=== PATIENT | male | born 1965 | race Caucasian/White ===

== ENCOUNTER 2018-02-10 11:08 | Emergency (ER) | payer BC ==
[2018-02-10] MEDS ORDERED: ONDANSETRON HCL IV 4 MG/2 ML VIAL IV ONE (11:24)
[2018-02-10] MEDS ORDERED: SODIUM CHLORIDE 0.9% 500 ML IV ONE (11:24)
[2018-02-10] MEDS ORDERED: HYDROMORPHONE HCL 2 MG/ML VIAL IVP ONE (11:25)
--- NOTE | 2018-02-10 11:27 | Emergency Department Record ---
History of Present Illness - General Chief complaint: Male Urogenital Problem Stated complaint: POSSIBLE KIDNEY STONES Time Seen by Provider: 02/10/18 11:21 Source: Patient Mode of Arrival: Ambulatory Limitations: No limitations - History of Present Illness Initial comments: The patient is here due to L flank pain for 10 hours. The pain is sharp and stabbing and is associated with nausea and vomiting. He has had a hx of kidney stones similar to this and feels he has another. He has been able to pass the stones in the past. He denies any fever with this problem. MD Complaint: Other Onset/Timin -: Hour(s) Location: Left flank Radiation: L flank Severity: Severe Severity scale (1-10): 10 Quality: Sharp Consistency: Constant Improves with: None Worsens with: None Reports: Nausea/vomiting - Related Data Home Medications Medication Instructions Recorded Confirmed Last Taken Aspirin [Aspir-Low] 81 mg PO DAILY 02/10/18 02/10/18 Unknown Cholecalciferol (Vitamin D3) 2,000 unit PO DAILY 02/10/18 02/10/18 Unknown [Vitamin D3] Simvastatin [Simvastatin] 20 mg PO DAILY 02/10/18 02/10/18 Unknown Tamsulosin HCl [Flomax] 0.4 mg PO DAILY 02/10/18 02/10/18 Unknown Previous Rx's Medication Instructions Recorded Ciprofloxacin HCl [Cipro] 500 mg PO Q12HR #14 tablet 02/10/18 Hydrocodone/Acetaminophen [[place] 1 - 2 each PO .EVERY 4-6 HRS PRN 02/10/18 5-325 Tablet] #20 tablet Allergies Allergy/AdvReac Type Severity Reaction Status Date / Time No Known Drug Allergies Allergy Verified 02/10/18 11:17 Travel Screening - Travel/Exposure Within Last 30 Days Have you traveled within the last 30 days?: No Review of Systems Constitutional: Denies: Chills, Fever Eyes: Denies: Eye discharge ENT: Denies: Congestion Respiratory: Denies: Cough, Dyspnea Past Medical History - SOCIAL HISTORY Smoking Status: Never smoker Alcohol Use: None Drug Use: None - RESPIRATORY Hx Respiratory Disorders: No - CARDIOVASCULAR Hx Cardio Disorders: Yes Comment:: high cholesterol - NEURO Hx Neuro Disorders: No - GI Hx GI Disorders: No - Hx Genitourinary Disorders: Yes Hx Kidney Stones: Yes - ENDOCRINE Hx Endocrine Disorders: No - MUSCULOSKELETAL Hx Musculoskeletal Disorders: No - PSYCH Hx Psych Problems: No - HEMATOLOGY/ONCOLOGY Hx Hematology/Oncology Disorders: No Family Medical History Any Significant Family History?: No Physical Exam - General General Appearance: Alert, Oriented x3, Cooperative, No acute distress - Head Head exam: Atraumatic, Normocephalic, Normal inspection - Eye Eye exam: Normal appearance, PERRL - Neck Neck exam: Normal inspection, Full ROM. negative: Tenderness - Respiratory Respiratory exam: Normal lung sounds bilaterally. negative: Respiratory distress - Cardiovascular Cardiovascular Exam: Regular rate, Normal rhythm, Normal heart sounds - GI/Abdominal GI/Abdominal exam: Soft, Tenderness (LUQ). negative: Distended, Rigid - Extremities Extremities exam: Normal inspection, Full ROM, Normal capillary refill. negative: Tenderness Course Vital Signs 02/10/18 11:13 Temperature 98.5 F Pulse Rate 48 L Respiratory 20 Rate Blood Pressure 125/81 Pulse Ox 97 - Reevaluation(s) Reevaluation #1: The patient is doing better at this time. He states the pain is much improved and he is resting much more comfortably. 02/10/18 12:38 Reevaluation #2: The patient is doing well at this time. I did discuss the case with Dr. Grullon and he does agree with the plan for discharge and he can see the patient in the office tomorrow. The patient will call for an appointment and understands the need to return for any fever, vomiting, or worse pain. 02/10/18 13:30 Medical Decision Making - Data Complexity MDM Data: Labs Ordered and/or Reviewed, X-Ray Ordered and/or Reviewed - Lab Data Result diagrams: 02/10/18 11:20 02/10/18 11:20 - Radiology Data Radiology results: Report reviewed (CT: 2.4 mm stone L UVJ with mild hydro.) Disposition Disposition: Discharge Clinical Impression: Ureteral stone Disposition: Home, Self-Care Condition: (2) Stable Instructions: Ureteral Stones (ED) Additional Instructions: Please drink plenty of fluids and take Motrin or [place] for pain. Also continue your Flomax and take the Cipro. Please call Dr. Grullon today for an appointment tomorrow in [place]. Please return to the ER for any worse pain, fever, or vomiting. Prescriptions: Ciprofloxacin HCl [Cipro] 500 mg PO Q12HR #14 tablet Hydrocodone/Acetaminophen [[place] 5-325 Tablet] 1 - 2 each PO .EVERY 4-6 HRS PRN #20 tablet PRN Reason: Pain Referrals: FRED GRULLON M.D. [MEDICAL DOCTOR] - Forms: Patient Portal Access Time of Disposition: 13:33 Quality - Quality Measures Quality Measures: N/A - Blood Pressure Screening View Details: Yes Does Patient Have Any of the Following: No Blood Pressure Classification: Pre-Hypertensive BP Reading Systolic Measurement: 125 Diastolic Measurement: 81 Screening for High Blood Pressure: < Pre-Hypertensive BP, F/U Documented > [ G8950] Pre-Hypertensive Follow-up Interventions: Referral to alternative/primary care provider.
[2018-02-10 11:36] LABS: HEMATOCRIT 46.1 % (42.0-52.0); HEMOGLOBIN 16.4 gm/dl (14.0-18.0); LYMPH % 5.9 % (16-45); MEAN CORPUSCULAR HGB CONC 35.6 g/dl (32-36); MEAN PLATELET VOLUME 10.4 fl (7.4-10.4); MONO % 5.6 % (0-9); PLATELET COUNT 229 K/uL (130-400); RED BLOOD COUNT 5.12 M/uL (4.40-5.70); RED CELL DISTRIBUTION WIDTH 12.4 % (11.5-14.5); WHITE BLOOD COUNT W/O DIFF 10.7 K/uL (4.2-12.2)
[2018-02-10 11:52] LABS: BLOOD UREA NITROGEN 18 mg/dL (6-20); CREATININE 1.2 mg/dL (0.7-1.2); EST GLOMERULAR FILTRATION RATE > 60 mL/min; GLUCOSE,RANDOM 129 mg/dL (74-109)
[2018-02-10] MEDS ORDERED: KETOROLAC 30 MG/ML VIAL IVP ONE (11:58)
[2018-02-10 12:43] LABS: URINE APPEARANCE CLEAR; URINE BILIRUBIN NEGATIVE (NEGATIVE); URINE BLOOD TRACE-L (NEGATIVE); URINE COLOR YELLOW; URINE GLUCOSE (UA) NEGATIVE (NEGATIVE); URINE KETONE TRACE (NEGATIVE); URINE LEUKOCYTE ESTERASE NEGATIVE (NEGATIVE); URINE NITRITE NEGATIVE (NEGATIVE); URINE PROTEIN NEGATIVE (NEGATIVE); URINE UROBILINOGEN 0.2 E.U./dL (0.20 - 1.00)
--- NOTE | 2018-02-11 08:11 | CT SCAN REPORT ---
EXAM: EMERGENCY CT OF THE ABDOMEN AND PELVIS WITHOUT CONTRAST HISTORY: LEFT FLANK PAIN. TECHNIQUE: Axial CT scan of the abdomen and pelvis was performed without oral or IV contrast. Comparison: None. FINDINGS: There are bilateral currently nonobstructing intrarenal calculi present, however, there is also hydronephrosis and hydroureter on the left with the dilated left ureter followed down to the left UVJ in the pelvis where it leads to a small calcification about 2.4 mm in size consistent with a tiny distal left ureteral calculus causing a component of obstruction on the left. No actual bladder calculus is seen. No hydronephrosis or hydroureter is seen on the right with no right ureteral calculus evident. The prostate is mildly enlarged measuring about 4.8 cm in transverse x 4.5 cm in AP diameters. No calcified gallstones are seen within the gallbladder. There is a 2 cm low attenuation mass medial segment left lobe of the liver posteriorly with a CT density of 8. This is incompletely evaluated without IV contrast, but is presumably a hepatic cyst. If not previously documented, follow-up MRI of the liver could be performed in an effort to confirm. Evaluation of the bowel and viscera very limited without oral or IV contrast. Given this limitation, no definite splenic, adrenal, pancreatic, or renal mass identified. Small hiatal hernia. The appendix is visualized and appears negative with no appendicitis evident. No free intraperitoneal air or free intraperitoneal fluid evident. There is a small periumbilical anterior abdominal wall hernia containing adipose tissue, but no bowel. Degenerative disk disease in the lower lumbar spine. IMPRESSION: 1. DISTAL LEFT URETERAL CALCULUS IN THE LEFT UVJ MEASURING ABOUT 2.4 MM IN SIZE WITH SOME ASSOCIATED HYDRONEPHROSIS AND HYDROURETER ON THE LEFT. 2. BILATERAL CURRENTLY NONOBSTRUCTING INTRARENAL CALCULI WELL. 3. PROBABLE 2 CM CYST LEFT LOBE OF THE LIVER, INCOMPLETELY EVALUATED WITHOUT IV CONTRAST. 4. SMALL PERIUMBILICAL ANTERIOR ABDOMINAL WALL HERNIA CONTAINING ADIPOSE TISSUE , BUT NO BOWEL. 5. SOMEWHAT ENLARGED PROSTATE. CORRELATION WITH PHYSICAL EXAM AND SERUM PSA SUGGESTED. JOB NUMBER: [id number] MTDD
== END 2018-02-10 13:38 | disposition home or self-care (01) ==
LOC: ER 11:08
DX: N13.2 Hydronephrosis with renal and ureteral calculous obstruction (principal); R11.2 Nausea with vomiting, unspecified; Z87.442 Personal history of urinary calculi
CPT/HCPCS: 99284 ×2; 96374; 96375; 96361; 80048; 81001; 85027; 74176; J1885; J2405; J1170

== ENCOUNTER 2018-05-17 09:24 | Emergency (ER) | payer BC ==
--- NOTE | 2018-05-17 09:45 | Emergency Department Record ---
History of Present Illness - General Chief complaint: Flank Pain Stated complaint: PASSING KIDNEY STONE Time Seen by Provider: 05/17/18 09:44 Source: Patient Mode of Arrival: Ambulatory Limitations: No limitations - History of Present Illness Initial comments: The patient is here due to R flank pain for 2 hours. The onset was sudden. The patient has a long hx of kidney stones and feels this is another one. He has had nausea and vomiting with it and has always been able to pass his stones in the past on his own. MD Complaint: Other Onset/Timin -: Hour(s) Location: Right flank Severity scale (1-10): 10 - Related Data Allergies Allergy/AdvReac Type Severity Reaction Status Date / Time No Known Drug Allergies Allergy Verified 02/10/18 11:17 Travel Screening - Travel/Exposure Within Last 30 Days Have you traveled within the last 30 days?: No - Travel/Exposure Within Last Year Have you traveled outside the [place] in the last year?: No - Additonal Travel Details Have you been exposed to anyone with a communicable illness?: No - Travel Symptoms Symptom Screening: None Review of Systems Constitutional: Denies: Chills, Fever Eyes: Denies: Eye discharge ENT: Denies: Congestion Respiratory: Denies: Cough, Dyspnea Past Medical History - SOCIAL HISTORY Smoking Status: Never smoker Alcohol Use: None Drug Use: None - RESPIRATORY Hx Respiratory Disorders: No - CARDIOVASCULAR Hx Cardio Disorders: Yes Comment:: high cholesterol - NEURO Hx Neuro Disorders: No - GI Hx GI Disorders: No - Hx Genitourinary Disorders: Yes Hx Kidney Stones: Yes Comment:: january 2018 - ENDOCRINE Hx Endocrine Disorders: No - MUSCULOSKELETAL Hx Musculoskeletal Disorders: No - PSYCH Hx Psych Problems: No - HEMATOLOGY/ONCOLOGY Hx Hematology/Oncology Disorders: No Family Medical History Any Significant Family History?: No Physical Exam - General General Appearance: Alert, Oriented x3, Cooperative, Mild distress (due to pain. ) - Head Head exam: Atraumatic, Normocephalic, Normal inspection - Eye Eye exam: Normal appearance, PERRL - Neck Neck exam: Normal inspection, Full ROM. negative: Tenderness - Respiratory Respiratory exam: Normal lung sounds bilaterally. negative: Respiratory distress - Cardiovascular Cardiovascular Exam: Regular rate, Normal rhythm, Normal heart sounds - GI/Abdominal GI/Abdominal exam: Soft, Normal bowel sounds. negative: Tenderness - Extremities Extremities exam: Normal inspection, Full ROM, Normal capillary refill. negative: Tenderness - Neurological Neurological exam: Alert. negative: Motor sensory deficit Course Vital Signs 05/17/18 09:26 Temperature 97.4 F L Pulse Rate 97 H Respiratory 16 Rate Blood Pressure 143/76 Pulse Ox 97 - Reevaluation(s) Reevaluation #1: The patient is doing a lot better at this time. His pain is much improved and he is resting MUCH more comfortably. I did discuss the issues with the patient and the need for F/U due to the CT demonstrating ureter stones on both sides. 05/17/18 11:03 Reevaluation #2: The patient is doing much better at this time. His pain is now down to a 2/10 on the R and there is no pain on the L. We are waiting on his UA. 05/17/18 11:31 Reevaluation #3: The patient is doing better but is still having pain on the R side. Due to the bilateral ureter stones I did discuss the case with Dr. Jesse Berry (Urology) at [facility] and he would like the patient to be transferred to the ER at [facility] for a Urology Consult. 05/17/18 12:22 Medical Decision Making - Data Complexity MDM Data: Labs Ordered and/or Reviewed, X-Ray Ordered and/or Reviewed - Lab Data Result diagrams: 05/17/18 09:40 05/17/18 09:40 - Radiology Data Radiology results: Report reviewed (CT: Distal R ureter stone 2 mm with mild hydro, Proximal L ureter stone 2.5 mm with No hydro or blockage.) Disposition Disposition: Transfer Clinical Impression: Ureteral stone with hydronephrosis Disposition: Acute Care Hospital Transfer Transfer To: [facility] Reason For Transfer: Urology Accepting Physician: Barron Time Discussed w/Accepting Physician: 12:23 Condition: (2) Stable Forms: Patient Portal Access Time of Disposition: 12:23 Quality - Quality Measures Quality Measures: N/A - Blood Pressure Screening View Details: Yes Does Patient Have Any of the Following: No Blood Pressure Classification: Hypertensive Reading Systolic Measurement: 143 Diastolic Measurement: 76 Screening for High Blood Pressure: < First Hypertensive BP, F/U Documented > [ G8950] First Hypertensive Follow-up Interventions: Referral to alternative/primary care provider.
[2018-05-17] MEDS ORDERED: ONDANSETRON HCL IV 4 MG/2 ML VIAL IV ONE (09:46)
[2018-05-17] MEDS ORDERED: HYDROMORPHONE HCL 2 MG/ML VIAL IVP ONE ×2 (09:46→11:53)
[2018-05-17] MEDS ORDERED: SODIUM CHLORIDE 0.9% 500 ML IV ONE (09:46)
[2018-05-17 09:55] LABS: BASO % 0.3 % (0-6); EOS % 3.6 % (0-6); HEMATOCRIT 49.5 % (42.0-52.0); HEMOGLOBIN 16.9 gm/dl (14.0-18.0); LYMPH % 31.3 % (16-45); MEAN CELL VOLUME 93.2 fl (81-97); MEAN CORPUSCULAR HEMOGLOBIN 31.8 pg (27-33); MEAN CORPUSCULAR HGB CONC 34.1 g/dl (32-36); MEAN PLATELET VOLUME 10.3 fl (7.4-10.4); MONO % 8.8 % (0-9); PLATELET COUNT 272 K/uL (130-400); RED BLOOD COUNT 5.31 M/uL (4.40-5.70); RED CELL DISTRIBUTION WIDTH 12.8 % (11.5-14.5); WHITE BLOOD COUNT W/O DIFF 5.8 K/uL (4.2-12.2)
[2018-05-17 10:07] LABS: BLOOD UREA NITROGEN 20 mg/dL (6-20); CREATININE 1.1 mg/dL (0.7-1.2); EST GLOMERULAR FILTRATION RATE > 60 mL/min
[2018-05-17 10:10] LABS: GLUCOSE,RANDOM 112 mg/dL (74-109)
[2018-05-17] MEDS ORDERED: KETOROLAC 30 MG/ML VIAL IVP ONE (10:10)
[2018-05-17 11:49] LABS: URINE APPEARANCE CLEAR; URINE BILIRUBIN NEGATIVE (NEGATIVE); URINE BLOOD LARGE (NEGATIVE); URINE COLOR YELLOW; URINE GLUCOSE (UA) NEGATIVE (NEGATIVE); URINE KETONE NEGATIVE (NEGATIVE); URINE NITRITE NEGATIVE (NEGATIVE); URINE PROTEIN NEGATIVE (NEGATIVE); URINE UROBILINOGEN 0.2 E.U./dL (0.20 - 1.00)
[2018-05-17 11:53] LABS: URINE EPITHELIAL CELLS 0 - 2 (FEW); URINE LEUKOCYTE ESTERASE TRACE (NEGATIVE); URINE WBC 0 - 2 (0-2/hpf)
[2018-05-17 11:54] LABS: URINE BACTERIA NONE SEEN
--- NOTE | 2018-05-19 14:53 | CT SCAN REPORT ---
EXAM: EMERGENCY CT SCAN OF THE ABDOMEN AND PELVIS WITHOUT CONTRAST HISTORY: RIGHT FLANK PAIN FOR TWO AND A HALF HOURS. TECHNIQUE: Axial CT scan of the abdomen and pelvis was performed without oral or IV contrast. Additional prone images through the lower pelvis were performed because of a small calcification noted on the initial series in the region of the right UVJ or along the bladder wall within the bladder lumen itself. Comparison: CT of the abdomen and pelvis 02/10/18. FINDINGS: There are bilateral currently nonobstructing intrarenal calculi. On the prior study there was hydronephrosis on the left with a distal left ureteral calculus apparent. This distal left ureteral calculus is no longer identified today, but there is a small calculus now seen in the upper left ureter on image 76 of 192 measuring only about 2.5 mm in size and not causing any appreciable hydronephrosis currently, however, on the right there is now new hydronephrosis and hydroureter with the dilated right ureter followed down to the pelvis where it leads to a small calcification only about 2 mm in size which appears to be within the right UVJ. This persists along the posterior aspect of the bladder on the prone images consistent with its being within the UPJ rather than free within the bladder lumen itself along the posterior wall. Allowing for this, no actual bladder calculus is seen today. Enlarged prostate similar to before. Probable 2 cm cyst left lobe of the liver as before. Small hiatal hernia. Small periumbilical anterior abdominal wall hernia containing adipose tissue, but no bowel as before. No calcified gallstones are seen within the gallbladder. Evaluation of the bowel and viscera again very limited without oral or IV contrast. Given this limitation, no definite splenic, adrenal, pancreatic, or renal mass identified. The appendix is visualized and appears negative. No free intraperitoneal air or free intraperitoneal fluid identified. Mild degenerative disk disease at the L4-L5 interspace. IMPRESSION: 1. APPROXIMATELY 2 MM CALCULUS AT THE RIGHT UVJ CAUSING A COMPONENT OF OBSTRUCTION ON THE RIGHT. 2. APPROXIMATELY 2.5 MM CALCULUS IN THE UPPER LEFT URETER NOT APPEARING TO CAUSE OBSTRUCTION CURRENTLY. 3. ADDITIONAL BILATERAL CURRENTLY NONOBSTRUCTING INTRARENAL CALCULI. 4. SMALL HIATAL HERNIA AND SMALL PERIUMBILICAL ANTERIOR ABDOMINAL WALL HERNIA. 5. ENLARGED PROSTATE BEFORE. 6. DEGENERATIVE CHANGE IN THE LUMBAR SPINE AGAIN EVIDENT. JOB NUMBER: [id number] [facility]
== END 2018-05-17 12:41 | disposition short-term general hospital (02) ==
LOC: ER 09:24
DX: N13.2 Hydronephrosis with renal and ureteral calculous obstruction (principal); R11.2 Nausea with vomiting, unspecified; Z87.442 Personal history of urinary calculi
CPT/HCPCS: 74176; 80048; 81001; 85025; 96361; 96374; 96375; 96376; 99285; J1885; J2405

== ENCOUNTER 2019-06-20 12:56 | Emergency (ER) | payer BC ==
--- NOTE | 2019-06-20 13:22 | Emergency Department Record ---
History of Present Illness - General Chief Complaint: Laceration(s) Stated Complaint: LAC ON FOREHEAD Time Seen by Provider: 06/20/19 13:22 Source: Patient Mode of Arrival: Ambulatory - History of Present Illness Initial Commments: The patient states he accidentally hit himself in the eye brow with a wrench while he was repairing a fan about an hour ago. He did not lose consciousness, did not "see stars" get nauseated or have vision changes. He feels fine now. He states he wants this cut glued and refuses to have stitches because "I am allergic to shots." He is UTD on his tetanus. Onset/Timin -: Minutes(s) Location: Face Place: Home Context: Accidental Associated Symptoms: None - Related Data Hx Tetanus Toxoid Vaccination: Yes Year of Tetanus Vaccination: 2016 Patient Tetanus UTD (within 5 yrs): Yes Allergies Allergy/AdvReac Type Severity Reaction Status Date / Time No Known Drug Allergies Allergy Verified 02/10/18 11:17 Travel Screening - Travel/Exposure Within Last 30 Days Have you traveled within the last 30 days?: No Review of Systems Reviewed: No additional complaints except as noted below Constitutional: Reports: As per HPI. Denies: Chills, Fever, Malaise, Night sweats, Weakness, Weight change Eyes: Reports: As per HPI. Denies: Eye discharge, Eye pain, Photophobia, Vision change ENT: Reports: As per HPI. Denies: Congestion, Dental pain, Ear pain, Epistaxis, Hearing loss, Throat pain Respiratory: Reports: As per HPI. Denies: Cough, Dyspnea, Hemoptysis, Stridor, Wheezes Cardiovascular: Reports: As per HPI. Denies: Arrhythmia, Chest pain, Dyspnea on exertion, Edema, Murmurs, Orthopnea, Palpitations, Paroxysmal nocturnal dyspnea, Rheumatic Fever, Syncope Endocrine: Reports: As per HPI. Denies: Fatigue, Heat or cold intolerance, Polydipsia, Polyuria Gastrointestinal: Reports: As per HPI. Denies: Abdominal pain, Constipation, Diarrhea, Hematemesis, Hematochezia, Melena, Nausea, Vomiting Genitourinary: Reports: As per HPI. Denies: Dysuria, Frequency, Hematuria, Incontinence, Retention, Testicular pain, Testicular mass, Urgency Musculoskeletal: Reports: As per HPI. Denies: Arthralgia, Back pain, Gout, Joint swelling, Myalgia, Neck pain Skin: Reports: As per HPI. Denies: Bruising, Change in color, Change in hair/nails, Lesions, Pruritus, Rash Neurological: Reports: As per HPI. Denies: Abnormal gait, Confusion, Headache, Numbness, Paresthesias, Seizure, Tingling, Tremors, Vertigo, Weakness Psychiatric: Reports: As per HPI. Denies: Anxiety, Auditory hallucinations, Depression, Homicidal thoughts, Suicidal thoughts, Visual hallucinations Hematological/Lymphatic: Reports: As per HPI. Denies: Anemia, Blood Clots, Easy bleeding, Easy bruising, Swollen glands Past Medical History - SOCIAL HISTORY Smoking Status: Never smoker - RESPIRATORY Hx Respiratory Disorders: No - CARDIOVASCULAR Hx Cardio Disorders: Yes Comment:: high cholesterol - NEURO Hx Neuro Disorders: No - GI Hx GI Disorders: No - Hx Genitourinary Disorders: Yes Hx Kidney Stones: Yes Comment:: january 2018 - ENDOCRINE Hx Endocrine Disorders: No - MUSCULOSKELETAL Hx Musculoskeletal Disorders: No - PSYCH Hx Psych Problems: No - HEMATOLOGY/ONCOLOGY Hx Hematology/Oncology Disorders: No Family Medical History Any Significant Family History?: No Physical Exam - General General Appearance: Alert, Oriented x3, Cooperative, No acute distress - Head Head exam: Normal inspection Image of Face/Head: 1 - 3 cm laceration along righ eyebrow. Bleeding controlled. - Eye Eye exam: Normal appearance, PERRL Pupils: Normal accommodation - ENT ENT exam: Normal exam, Mucous membranes moist, Normal external ear exam, Normal orophraynx, TM's normal bilaterally Ear exam: Normal external inspection. negative: External canal tenderness Nasal Exam: Normal inspection. negative: Discharge, Sinus tenderness Mouth exam: Normal external inspection, Tongue normal Teeth exam: Normal inspection. negative: Dental caries Throat exam: Normal inspection. negative: Tonsillar erythema, Tonsillar exudate - Neck Neck exam: Normal inspection, Full ROM. negative: Tenderness - Respiratory Respiratory exam: Normal lung sounds bilaterally. negative: Respiratory distress - Cardiovascular Cardiovascular Exam: Regular rate, Normal rhythm, Normal heart sounds - GI/Abdominal GI/Abdominal exam: Soft, Normal bowel sounds. negative: Tenderness - Rectal Rectal exam: Deferred - exam: Deferred - Extremities Extremities exam: Normal inspection, Full ROM, Normal capillary refill. negative: Tenderness - Back Back exam: Reports: Normal inspection, Full ROM. Denies: Muscle spasm, Rash noted, Tenderness - Neurological Neurological exam: Alert, Normal gait, Oriented X3, Reflexes normal - Psychiatric Psychiatric exam: Normal affect, Normal mood - Skin Skin exam: Dry, Intact, Normal color, Warm Course Vital Signs 06/20/19 12:57 Temperature 97.7 F Pulse Rate 58 L Respiratory 16 Rate Blood Pressure 132/82 Pulse Ox 95 - Reevaluation(s) Reevaluation #1: PROCEDURE: ( Patient refused stitches) Copious irrigation with syringe, shurclenz spray to wound, no FB, bleeding controlled, benzoin and steri strips to skin, wound well approximated. Patient tolerated well. 06/20/19 13:44 Medical Decision Making - Management Options MDM Management: No Additional Work-up Planned Disposition Disposition: Discharge Clinical Impression: Laceration of eyebrow, right Qualifiers: Encounter type: initial encounter Qualified Code(s): S01.111A - Laceration without foreign body of right eyelid and periocular area, initial encounter Disposition: Home, Self-Care Condition: (1) Good Instructions: Laceration (ED) Additional Instructions: Keep area clean and dry. Allow steri strips to wear off. Wound will scar and possiblly could need revision. Tylenol alternated with ibuprofen as needed as directed. PCP follow up as needed. Forms: Patient Portal Access Quality - Quality Measures Quality Measures: N/A - Blood Pressure Screening Does Patient Have Any of the Following: No Blood Pressure Classification: Pre-Hypertensive BP Reading Systolic Measurement: 132 Diastolic Measurement: 82 Screening for High Blood Pressure: < Pre-Hypertensive BP, F/U Documented > [G8950] Pre-Hypertensive Follow-up Interventions: Follow-up with rescreen every year.
== END 2019-06-20 13:58 | disposition home or self-care (01) ==
LOC: ER 12:56
DX: S01.111A Laceration without foreign body of right eyelid and periocular area, initial encounter (principal); W22.8XXA Striking against or struck by other objects, initial encounter; Y92.009 Unspecified place in unspecified non-institutional (private) residence as the place of occurrence of the external cause
CPT/HCPCS: 99283